=== PATIENT | male | born 1995 | race Two or more races ===

== ENCOUNTER → 2023-08-06 | Emergency (ER) | payer OTHER ==
[~2023-08-06] VITALS: Ht 172.7 cm; Wt 93.9 kg
[~2023-08-06] MED LIST: SUBOXONE 8 MG-1 EACH
== END | disposition left against medical advice (07) ==
LOC: ER 15:23
DX: Z53.21 Procedure and treatment not carried out due to patient leaving prior to being seen by health care provider (principal)